=== PATIENT | male | born 1955 | race Caucasian/White ===

== ENCOUNTER 2022-12-05 09:55 | Outpatient (CLI) | payer OTHER, SELFPAY | END 2022-12-05 09:56 | disposition home or self-care (01) | PROVIDERS: Visit Provider Family Medicine | DX: Z00.00 Encounter for general adult medical examination without abnormal findings (principal); S06.9XAA Unspecified intracranial injury with loss of consciousness status unknown, initial encounter; Z13.6 Encounter for screening for cardiovascular disorders; Z29.8 Encounter for other specified prophylactic measures | CPT/HCPCS: 80053; 80061; 80185 ==

== ENCOUNTER 2023-10-23 10:31 | Outpatient (CLI) | payer OTHER, SELFPAY | END 2023-10-23 10:32 | disposition home or self-care (01) | LOC: NFLDREF 10-30 15:01 | PROVIDERS: PCP Family Medicine; Referring Provider Family Medicine; Visit Provider Family Medicine | DX: S06.9XAD Unspecified intracranial injury with loss of consciousness status unknown, subsequent encounter (principal); Z79.899 Other long term (current) drug therapy; Z12.5 Encounter for screening for malignant neoplasm of prostate | CPT/HCPCS: 80053; 80061; 80185; 80186; G0103 ==

== ENCOUNTER 2024-11-05 14:07 | Outpatient (CLI) | payer OTHER, SELFPAY | END 2024-11-05 14:08 | disposition home or self-care (01) | PROVIDERS: PCP Family Medicine; Visit Provider Family Medicine | DX: Z13.6 Encounter for screening for cardiovascular disorders (principal); Z13.1 Encounter for screening for diabetes mellitus; Z12.5 Encounter for screening for malignant neoplasm of prostate; Z11.59 Encounter for screening for other viral diseases; Z13.820 Encounter for screening for osteoporosis | CPT/HCPCS: 80053; 80061; 80185; 80186; 82306; 86803; G0103 ==

== ENCOUNTER 2024-12-15 08:00 | Outpatient (CLI) | payer OTHER, SELFPAY | END 2024-12-15 08:01 | disposition home or self-care (01) | LOC: NFLDREF 12-18 15:26 | PROVIDERS: PCP Family Medicine; Referring Provider Family Medicine; Visit Provider Family Medicine | DX: R78.89 Finding of other specified substances, not normally found in blood (principal) | CPT/HCPCS: 80185; 80186 ==

== ENCOUNTER 2025-01-04 09:32 | Outpatient (CLI) | payer OTHER, SELFPAY | END 2025-01-04 09:33 | disposition home or self-care (01) | LOC: NFLDREF 01-07 01:49 | PROVIDERS: PCP Family Medicine; Referring Provider Family Medicine; Visit Provider Family Medicine | DX: Z51.81 Encounter for therapeutic drug level monitoring (principal); Z79.899 Other long term (current) drug therapy | CPT/HCPCS: 80185; 80186 ==